=== PATIENT | female | born 2000 | race Caucasian/White ===

== ENCOUNTER → 2019-09-09 | Outpatient (CLI) | payer BC | END | disposition home or self-care (01) | LOC: PLD 13:46 → LAB SHORT 13:46 | DX: D23.4 Other benign neoplasm of skin of scalp and neck (principal) | CPT/HCPCS: 88305 ==

== ENCOUNTER 2024-08-10 18:56 | Emergency (ER) | payer BC ==
[~2024-08-10] VITALS: Ht 160 cm; Wt 99.8 kg
[2024-08-10 19:22] VITALS: BP 118/84
== END 2024-08-10 22:37 | disposition home or self-care (01) ==
LOC: ER 18:56
DX: S51.811A Laceration without foreign body of right forearm, initial encounter (principal); W25.XXXA Contact with sharp glass, initial encounter
CPT/HCPCS: 12004; 99282-25

== ENCOUNTER 2024-08-24 12:35 | Day surgery (SDC) | payer OTHER, BC ==
[~2024-08-24] VITALS: Ht 160 cm; Wt 105.5 kg
[~2024-08-24 12:35] MED LIST: Lactated Ringer's 1,000 ML IV ONE; Lidocaine HCl 2% 10 ML SDA ONE
[2024-08-24] MEDS ORDERED: CeFAZolin Sodium 2,000 MG VIAL ONE (12:47)
[2024-08-24] MEDS ORDERED: NS 500 ML IV ONE (13:09)
[2024-08-24] MEDS ORDERED: FentaNYL Citrate 50 MCG/ML 2 ML Injection ONE (13:12)
[2024-08-24] MEDS ORDERED: propofoL 20 ML IV ONE (13:12)
[2024-08-24] MEDS ORDERED: SuccINYLCHOLINE Chloride 100 MG/5 ML 5MLSYR ONE (13:59)
[2024-08-24] MEDS ORDERED: Ondansetron HCl 2 MG / ML 2ML Vial ONE (15:16)
--- NOTE | 2024-08-24 15:22 | NUR ---
08/24/24 1522 Edyta Graves PT DROWSY, AROUSABLE TO VERBAL STIMULI. PATIENT ANSWERS QUESTIONS AND PT FOLLOWS COMMANDS. VSS. IV PATENT. 275 ML LR LEFT IN BAG. PT REPORTED NAUSEA, ANTIEMETIC GIVEN
[2024-08-24] MEDS ORDERED: Ketorolac Tromethamine 30mg Vial ONE (15:24)
[2024-08-24] MEDS ORDERED: Metoclopramide HCl 5MG / ML 2ML Vial ONE (15:46)
--- NOTE | 2024-08-24 15:52 | NUR ---
08/24/24 0621 Edyta Graves BROUGHT TO BEDSIDE
[2024-08-24] MEDS ORDERED: HYDROcodone 5-APAP 325 TAB ONE (15:57)
[2024-08-24 16:03] VITALS: BP 116/70
== END 2024-08-24 16:31 | disposition home or self-care (01) ==
LOC: ORSCSDS 12:35
PROVIDERS: Orthopaedic Surgery
PROC: 01Q40ZZ Repair Ulnar Nerve, Open Approach (ICD-10-PCS; principal; 2024-08-24 14:00)
DX: S54.01XA Injury of ulnar nerve at forearm level, right arm, initial encounter (principal); S51.831A Puncture wound without foreign body of right forearm, initial encounter; W01.110A Fall on same level from slipping, tripping and stumbling with subsequent striking against sharp glass, initial encounter; E28.2 Polycystic ovarian syndrome; E66.01 Morbid (severe) obesity due to excess calories; Z68.41 Body mass index [BMI] 40.0-44.9, adult
CPT/HCPCS: A9270; C1889; J0330; J0690; J1885; J2003; J2405; J2704; J2765; J3010; J7120

== ENCOUNTER → 2025-01-08 | Outpatient (CLI) | payer OTHER ==
[2025-01-08 10:04] LABS: Source, Urine Clean Catch
[2025-01-08 10:44] LABS: Bilirubin, Urine Neg (Neg); Glucose Qualitative, Urine Neg (Neg); Ketones, Urine Neg (Neg); Leukocyte Esterase, Urine Neg (Neg); Protein, Urine Neg (Neg); Specific Gravity, Urine 1.005 (1.003-1.022); Urobilinogen, Urine NORM (Normal)
[2025-01-08 10:53] LABS: Color, Urine Pale Yellow (P-Yellow)
[2025-01-08 11:10] LABS: Red Blood Cells, Urine 0-2 /hpf (0-2); White Blood Cells, Urine 0-2 /hpf (0-5)
== END | disposition home or self-care (01) ==
LOC: LAB SHORT 10:03 → LAB 10:03
PROVIDERS: Obstetrics & Gynecology
DX: Z01.812 Encounter for preprocedural laboratory examination (principal)
CPT/HCPCS: 81001

== ENCOUNTER 2025-01-22 14:49 | Day surgery (SDC) | payer OTHER ==
[2025-01-22] VITALS (8 sets, daily range): BP systolic 116–131; BP diastolic 65–82
[~2025-01-22] VITALS: Ht 160 cm; Wt 107.4 kg
[2025-01-22] MEDS ORDERED: Rocuronium Bromide 10 MG/ML 5ML Injection IV ONE (15:49)
[2025-01-22] MEDS ORDERED: SuccINYLCHOLINE Chloride 100 MG/5 ML 5MLSYR ONE (15:49)
[2025-01-22] MEDS ORDERED: FentaNYL Citrate 50 MCG/ML 2 ML Injection ONE (15:49)
--- NOTE | 2025-01-22 15:49 | NUR ---
Ambulatory in Day Surgery accompanied by her . History, Chart, Medications and Allergies reviewed before start of procedure. Patient reports eating a granola bar and drinking water at 0800 this morning, reports being NPO after that time. Okay to proceed per Anesthesia. Pt agrees with scheduled surgery. Pre-Op teaching done. Pt verbalizes understanding. Patient States Post-Procedure ride home has been arranged. Pt belongings placed underneath [facility] for safekeeping.
[2025-01-22] MEDS ORDERED: Ketorolac Tromethamine 30mg Vial ONE (16:02)
[2025-01-22] MEDS ORDERED: Ondansetron HCl 2 MG / ML 2ML Vial ONE (16:02)
[2025-01-22] MEDS ORDERED: Dexamethasone Sod Phos 10 MG/ML 1ML VIAL ONE (16:02)
[2025-01-22] MEDS ORDERED: Sugammadex Sodium 200 MG/2ML SDV (100 MG/ML) ONE (16:15)
[2025-01-22] MEDS ORDERED: FentaNYL Citrate 50 MCG/ML 2 ML Injection IV PRN ×2 (16:20)
[2025-01-22] MEDS ORDERED: Metoclopramide HCl 5MG / ML 2ML Vial IV PRN (16:20)
[2025-01-22] MEDS ORDERED: Ondansetron HCl 2 MG / ML 2ML Vial IV PRN (16:20)
[2025-01-22] MEDS ORDERED: HYDROmorphone HCl/Pf 1MG SYR IV PRN (16:20)
--- NOTE | 2025-01-22 17:30 | NUR ---
PT TO UNIT AWAKE SITTING UP AND TALKING AND REQUESTING TO GO HOME. VSS. PT TOLERATING WATER WELL WITH NO PAIN OR NAUSEA REPORTED. Discharge instructions reviewed with patient. Patient verbalizes understanding. Copy given to patient to take home. ALL BELONGINGS RETURNED TO PT. Discharged via wheelchair to private car for ride home WITH SPOUSE.
== END 2025-01-22 23:00 | disposition home or self-care (01) ==
LOC: ORSCMMR 14:49 → ORD 16:00 → ORSCMMR 16:00
PROVIDERS: Obstetrics & Gynecology
PROC: 0UBC8ZZ Excision of Cervix, Via Natural or Artificial Opening Endoscopic (ICD-10-PCS; principal; 2025-01-22 16:00)
DX: N84.1 Polyp of cervix uteri (principal)
CPT/HCPCS: 88305; A9270; J0330; J1100; J1885; J2405; J2704; J3010; J7120